=== PATIENT | female | born 1980 | race Caucasian/White ===

== ENCOUNTER 2017-11-06 21:37 | Emergency (ER) | payer BC ==
[2017-11-06 21:55] LABS: Urine Bilirubin Negative (NEGATIVE); Urine Blood Negative /ul (NEGATIVE); Urine Ketone Negative (NEGATIVE); Urine Nitrite Negative (NEGATIVE); Urine Protein Negative (NEGATIVE); Urine Specific Gravity >=1.030 SP.GR. (1.005-1.010); Urine Urobilinogen Normal (NORMAL)
[2017-11-06 22:05] LABS: Urine Amorphous Sediment TRACE (NONE-FEW); Urine Appearance Clear; Urine Bacteria TRACE; Urine Color Dark Yellow; Urine Mucus TRACE; Urine RBC None Seen /hpf (0-5); Urine WBC 0-5 /hpf (0-5)
--- NOTE | 2017-11-06 22:29 | ERNOTE ---
Abdominal HPI - General Chief Complaint: Abdominal Pain Time Seen by Provider: 11/06/17 22:18 Source: patient Exam Limitations: no limitations - Immun/Allergies/Home Medications Immunizatons: IMMUNIZATION HX Immunizations Up to Date Yes History of Influenza Vaccine No Allergies/Adverse Reactions: Allergies doxycycline Allergy (Mild, Verified 11/06/17 21:45) RASH metronidazole Allergy (Mild, Verified 11/06/17 21:45) RASH tetracycline [Tetracycline] Allergy (Unknown, Verified 11/06/17 21:45) Home Medications: HOME MEDICATIONS Escitalopram Oxalate [Lexapro] 10 mg PO DAILY 09/06/15 [Last Taken Unknown] Lorazepam [Ativan] 2 mg PO HS 09/06/15 [Last Taken Unknown] Nabumetone 750 mg PO BID #20 tablet 11/07/17 [Last Taken Unknown] - History of Present Illness Narrative: Pt had onset of RLQ pain 2 days ago with increase throughout that time. tonight she took a hydrocodone with minimal improvement Timing: getting worse Quality: moderate, severe, sharpness, stabbing Modifying Factors - (Worsens): Present: movement Associated Symptoms: Absent: back pain Review of Systems - Review of Systems Constitutional: Absent: recent illness EYE: Present: no symptoms reported ENT: Present: no symptoms reported Respiratory: Present: no symptoms reported Cardiology: Present: no symptoms reported Gastrointestinal/Abdominal: Present: See HPI Genitourinary: Present: pain - after urinating. Absent: frequency Musculoskeletal: Present: no symptoms reported Skin: Absent: rash Neurological: Present: no symptoms reported Endocrine: Present: no symptoms reported Hematologic/Lymphatic: Present: no symptoms reported Psych: Present: no symptoms reported - Patient's Past Medical History Patient History - Medical: Anxiety, Depression, Other Patient History - Cardiac/Respiratory: No pertinent hx Patient History - Cancer: No Hx of Cancer Patient History - Surgical Procedures: Back Surgery, , Hysterectomy Patient History - Other: None - Social History Abuse History: No History of abuse Psych History: No pertinent hx Smoking Status: Never smoker Have you smoked in the past 12 months: No Do you dip or chew tobacco: No Alcohol Use: occasionally Drug Use: none - Immunizations Immunizations Up to Date: Yes History of Influenza Vaccine: No Physical Exam - Physical Exam General Appearance: Present: wd/wn, alert, no apparent distress Head Exam: Present: normal inspection, no evidence of injury Respiratory: Present: no respiratory distress, no accessory muscle use Gastrointestinal/Abdominal: Present: normal bowel sounds, tenderness - RLQ and mild LLQ Back Exam: Present: normal inspection, normal range of motion Neurological Exam: Present: alert, oriented, normal mood/affect Skin Exam: Present: normal color, warm/dry ED Progress - Results and Orders Patient's Lab Results:: I have reviewed the patient's lab results. Results and Orders: Laboratory Tests 11/06/17 11/06/17 11/06/17 22:36 22:36 22:36 WBC 12.0 H Hgb 12.6 Hct 37.5 Sodium 139 Potassium 3.7 Chloride 104 Carbon Dioxide 29.6 BUN 12 Creatinine 0.69 Random Glucose 108 Calcium 8.6 Total Bilirubin 0.2 AST 15 ALT 26 Alkaline Phosphatase 89 Total Protein 7.5 Albumin 3.5 Serum HCG, Qual Negative - Vital Signs Patient's Vital Signs:: I have reviewed the patient's vital signs. Vital Signs: Vital Signs 11/06/17 11/06/17 21:40 21:54 Temperature 36.5 C 36.5 C Pulse Rate 91 91 Respiratory 16 16 Rate Blood Pressure 134/84 134/84 O2 Sat by Pulse 99 99 Oximetry - X-Ray X-Ray #1 X-Ray: abdomen Interpretation: Interp. by me X-ray Comments: mod stool retention, no evidence for obstruction or mass. - CT/Ultrasound CT/Ultrasound Narrative: CT abd/ pelvis: 6.9 x 3.5 cm intermediate and high attenuation in the right adnexa, likely a hemorrhagic cyst No GI tract obstruction or wall thickening trace free fluid around right adnexa Negative for free air or ascites - Progress/Reassessment Chief Complaint: Abdominal Pain Progress:: Improved Departure Clinical Impression: Ruptured ovarian cyst - Departure Disposition: Home self-care Condition: Good Instructions: Ovarian Cyst, [id number] Additional Instructions: use prescription until pain has resolved. See your concrete boom operator if not improving in 3-5 days. Referrals: Miguel Angulo MD [Primary Care Provider] - Prescriptions: Nabumetone 750 mg PO BID #20 tablet
[2017-11-06 22:38] LABS: Hematocrit 37.5 % (37.0-47.0); Hemoglobin 12.6 gm/dL (12.5-16.0); Mean Cell Volume 87.6 fl (78-100); Mean Corpuscular Hemoglobin 29.4 pg (27-31); Mean Corpuscular Hgb Conc 33.6 g/dl (32-36); Mean Platelet Volume 11.8 fl (6.0-9.5); Neutrophil # 8.5 K/mm3 (1.3-6.0); Neutrophil % 71.6 % (42-75.0); Platelet Count 173 K/mm3 (150-450); Red Blood Count 4.28 M/mm3 (4.2-5.4); Red Cell Distribution Width 12.6 % (11.5-14.0)
[2017-11-06 22:55] LABS: Albumin * 3.5 gm/dl (3.4-5.0); Anion Gap 9.1 mmol/L (6.8-13.8); BUN/Creatinine Ratio 17.4 (9.0-21.6); Bilirubin, Total 0.2 mg/dL (0.0-1.1); Ca. Corrected For Albumin 8.7 mg/dL (8.4-10.2); Calcium * 8.6 mg/dL (7.9-10.9); Carbon Dioxide 29.6 mmol/L (24-32.6); Potassium 3.7 mmol/L (3.4-4.6); Total Protein 7.5 gm/dL (6.2-8.2)
[2017-11-07] MEDS ORDERED: KETOROLAC TROMETHAMINE 30 MG/ML VIAL ONE (00:42)
[2017-11-07] MEDS: KETOROLAC TROMETHAMINE 30 MG/ML VIAL IV ONE (00:50)
[2017-11-07] MEDS ORDERED: DIATRIZOATE MEGLUMINE, SODIUM 30 ML BTL ONE (00:58)
[2017-11-07] MEDS: DIATRIZOATE MEGLUMINE, SODIUM 30 ML BTL PO ONE (01:01)
[2017-11-07 02:26] VITALS: BP 115/63
== END 2017-11-07 03:13 | disposition home or self-care (01) ==
LOC: ER 21:37
DX: F32.9 Major depressive disorder, single episode, unspecified; N83.291 Other ovarian cyst, right side; F41.9 Anxiety disorder, unspecified

== ENCOUNTER 2017-11-08 12:11 | Day surgery (SDC) | payer BC ==
[2017-11-08] MEDS ORDERED: RINGER'S SOLUTION,LACTATED 1,000 ML IV PRN (12:23)
[2017-11-08] MEDS ORDERED: SCOPOLAMINE HYDROBROMIDE 1.5 MG PATC TD ONE (12:29)
[2017-11-08 12:38] LABS: Hematocrit 36.7 % (37.0-47.0); Hemoglobin 12.4 gm/dL (12.5-16.0); Mean Cell Volume 87.8 fl (78-100); Mean Corpuscular Hemoglobin 29.7 pg (27-31); Mean Corpuscular Hgb Conc 33.8 g/dl (32-36); Mean Platelet Volume 11.5 fl (6.0-9.5); Neutrophil % 80.2 % (42-75.0); Platelet Count 166 K/mm3 (150-450); Red Blood Count 4.18 M/mm3 (4.2-5.4); Red Cell Distribution Width 12.5 % (11.5-14.0); White Blood Count 11.2 K/mm3 (4.0-10.5)
[2017-11-08] MEDS ORDERED: RINGER'S SOLUTION,LACTATED 1,000 ML IV ONE ×3 (12:57→16:23)
[2017-11-08] MEDS ORDERED: BUPIVACAINE HCL/EPINEPHRINE 50 ML VIAL IJ ONE ×2 (14:20)
--- NOTE | 2017-11-08 15:57 | OR ---
Operative Report - Dictated Report Narrative: Operative report: 11/08/2017 Preoperative diagnosis: Severe abdominal pain, suspect ovarian torsion, right ovarian cyst, history of endometriosis Postoperative diagnosis: Same plus right torsed pedunculated ovarian cyst Procedure: Laparoscopic right ovarian cystectomy, lysis of adhesion, evacuation of blood in the cul-de-sac Surgeon: Mee Knapp D.O. Loft Worker Head: OR staff Anesthesia: Gen. IV fluids: 1100 Milliliters Urine output: Minimal amount of clear urine Findings: Normal appearing left ovary, small bowel adherent to the right pelvic sidewall, several areas of white endometriosis implants on the peritoneum, evidence of prior hysterectomy, normal liver edge, right ovary with a 5 cm pedunculated cysts that was torsed 2, appeared to be black, and adherent to the pelvic sidewall and the small bowel, dark chocolatey blood in the cul-de-sac , right vermiculating ureter, inflammation of the bowel EBL: Minimal Drains: None Pathology: Right pedunculated torsed ovarian cyst Complications: None Condition: Stable The patient was taken to the operating room. Anesthesia was found to be adequate. The patient was prepped and draped in the normal sterile fashion in the dorsal lithotomy position. A red rubber was then inserted into the bladder to drain throughout the procedure. Attention was then turned to the abdomen. Local anesthetic was then injected within the umbilicus. A 5 mm skin incision was then made with the scalpel. A hemostat was then used to bluntly dissect down to the fascia. The 5 mm camera was then inserted into the trocar and under direct visualization inserted into the abdomen. The abdomen was then insufflated to 12 mmHg. The abdomen was then surveyed and noted as above. Attention was then turned to the right lower quadrant, the peritoneum was mapped with local anesthetic, skin incised, subcutaneous tissue bluntly dissected, and an 5 mm trocar entered into the peritoneum under direct visualization. The dark chocolatey blood was noted in the cul-de-sac was evacuated with the suction financial aid counselor. A grasper was used to gently eased the bowel off of the right pelvic sidewall as well as release the ovary from the right pelvic sidewall. Initially it looked like a blood clot adherent to the pelvic sidewall and decision was made to use a 5 mm trocar in the left lower quadrant. This was done using the same steps as noted above. After releasing the ovary from the pelvic sidewall and the bowel from the right pelvic sidewall there was a connection noted from the ovary to the area that was initially thought to be a blood clot. This was firm and attached to the ovary. This was released from the pelvic sidewall and became clear that it was contiguous with the ovary and twisted 2. It was untwisted 2 and a small communicating pedicle was noted to be attached to the ovary approximately 1.5 cm wide. Since the majority of the ovary appeared unaffected and no obvious ovarian tissue was seen within the cyst the decision was made to remove the cyst at the base of its pedicle. No blood loss was noted. The left lower quadrant trocar was then replaced with a 12 mm trocar. An Endobag was then introduced and the cyst was placed in the Endobag and moved from the abdomen intact. Suction irrigation was then performed and no active bleeding was noted the right ureter was visualized and was vermiculating. The abdomen was then desufflated. The trochars were removed under direct visualization. The left lower quadrant fascia was reapproximated with 0 Vicryl. Due to the deep subcutaneous tissue this was reapproximated with 0 Vicryl. The skin incisions were then reapproximated with 4-0 Vicryl, benzoin and Steri-Strips. Band-Aids were then placed. The red rubber catheter was then removed. Clear yellow urine was noted throughout the entire procedure. The patient tolerated the procedure well. Sponge, lap, needle, and instrument counts were correct throughout the entire procedure. The patient was taken to the recovery room in stable condition.
[2017-11-08] MEDS ORDERED: oxyCODONE HCL/ACETAMINOPHEN 1 TAB TABLET PO PRN (16:43)
[2017-11-08] MEDS ORDERED: IBUPROFEN 800 MG TABLET PO PRN (16:44)
[2017-11-08 17:54] VITALS: BP 112/62
== END 2017-11-08 12:12 | disposition home or self-care (01) ==
LOC: SUR 12:11
PROVIDERS: ATTEND Obstetrics & Gynecology Gynecologic Oncology
PROC: 0UB04ZZ Excision of Right Ovary, Percutaneous Endoscopic Approach (ICD-10-PCS; principal; 2017-11-08)
DX: N83.511 Torsion of right ovary and ovarian pedicle (principal); N83.291 Other ovarian cyst, right side; K66.0 Peritoneal adhesions (postprocedural) (postinfection); F41.9 Anxiety disorder, unspecified; F32.9 Major depressive disorder, single episode, unspecified; Z87.891 Personal history of nicotine dependence; Z68.34 Body mass index [BMI] 34.0-34.9, adult